=== PATIENT | female | born 1970 | race Caucasian/White ===

== ENCOUNTER → 2017-03-09 | Outpatient (CLI) | payer OTHER ==
[~2017-03-09] MED LIST: NIFE10CA PO; NIFE30TA2 PO; OXYC-302 PO; PREN1TAB52 PO
== END | disposition home or self-care (01) ==
LOC: CVU 07:54
PROVIDERS: ATTEND Obstetrics & Gynecology Reproductive Endocrinology
DX: I08.1 Rheumatic disorders of both mitral and tricuspid valves (principal); Z87.59 Personal history of other complications of pregnancy, childbirth and the puerperium
CPT/HCPCS: 93017; 93306